=== PATIENT | female | born 1985 | race Caucasian/White ===

== ENCOUNTER 2022-06-29 11:04 | Emergency (ER) | payer MEDICAID ==
[~2022-06-29] VITALS: Ht 170.2 cm; Wt 90.9 kg
[2022-06-29 11:52] VITALS: BP 141/78
[2022-06-29] MEDS ORDERED: ondansetron 4mg rapidly disintigrating tab PO ONE (13:40)
[2022-06-29] MEDS ORDERED: ONDA4TAB12 PO (15:06)
== END 2022-06-29 15:26 | disposition home or self-care (01) ==
LOC: ER 11:06
DX: J06.9 Acute upper respiratory infection, unspecified (principal); R11.0 Nausea; Z88.8 Allergy status to other drugs, medicaments and biological substances; Z79.899 Other long term (current) drug therapy
CPT/HCPCS: 87502; 87503; 99283